=== PATIENT | female | born 1985 | race Caucasian/White ===

== ENCOUNTER 2017-03-03 08:16 | Day surgery (SDC) | payer BC ==
--- NOTE | 2017-03-03 08:57 | EDPHY ---
H & P Stated Complaint: vaginal bleeding with 7/8 week HPI/ROS: CHIEF COMPLAINT: Vaginal bleeding while HISTORY OF PRESENT ILLNESS: The patient is an 8-week , 31 y/o female arriving with her complaining of vaginal bleeding onset last night. She reports that while sitting on the toilet around 19:30 last night she noticed quite a bit of blood. This did not improve through the night and she started to have associated surges of abdominal cramps. She took 2 Tylenol for pain. 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 She went to the hospital in [place], but they did not have an US so they recommended coming to the ED here. This morning, the bleeding has nearly subsided, but she continues to have mild cramping. Her LNMP was January 09 and she has not yet had an obstetrics ultrasound. She denies fever, dysuria, or other complaints. She is not lightheaded. REVIEW OF SYSTEMS: A ten point review of systems was performed and is negative with the exception of the items mentioned in the HPI. - Personal History LMP (Females 10-55): Current Tetanus/Diphtheria Vaccine: Yes - Medical/Surgical History PMH: PMH includes: 1. Right knee surgery 2. Facial surgeries Hx Asthma: No Hx Chronic Respiratory Disease: No Hx Diabetes: No Hx Cardiac Disease: No Hx Renal Disease: No Hx Cirrhosis: No Hx Alcoholism: No Hx HIV/AIDS: No Hx Splenectomy or Spleen Trauma: No Other PMH: r knee surgery - Social History Smoking Status: Never smoked Alcohol Use: None Additional Social History: at bedside. From [place], [place], visiting [place] and staying in [place]. Works in [employer]. - Physical Exam Exam: General Appearance: Alert. Vital signs reviewed. Eyes: Pupils equal and round, no conjunctival injection, no discharge. Anicteric. ENT, Mouth: Mucous membranes are moist, no oropharyngeal erythema or edema. Neck: No lymphadenopathy, supple. Respiratory: Lungs are clear to auscultation; no wheezes, rales, or rhonchi. Cardiovascular: Regular rate and rhythm; no murmur, rub, or gallop. Gastrointestinal: Abdomen is soft and nontender, no masses or organomegaly, bowel sounds normal. Skin: Warm and dry, no rashes on exposed skin, normal color. Back: Nontender to palpation over the thoracolumbar spine. No CVAT. Extremities: No lower extremity edema, no calf tenderness or swelling. Neurological: Alert and oriented. Moving all four extremities easily and equally. Psychiatric: Normal affect. Constitutional: Initial Vital Signs Temperature (C) 36.5 C 03/03/17 08:22 Heart Rate 75 03/03/17 08:22 Respiratory Rate 18 03/03/17 08:22 Blood Pressure 110/67 03/03/17 08:22 O2 Sat (%) 99 03/03/17 08:22 O2 Delivery Mode Simple Mask O2 (L/minute) 8 Allergies/Adverse Reactions: No Known Allergies Allergy (Unverified 03/03/17 08:21) Home Medications: Medication Instructions Recorded Fish Oil 03/03/17 Hydrocodone/APAP 5/325 [[place] 1 - 2 tab PO Q4H PRN #10 tab 03/03/17 5/325 (*)] Hydrocodone/APAP 5/325 [[place] 1 - 2 tab PO Q4HRS PRN #0 tab 03/03/17 5/325 (*)] Ibuprofen 600 mg PO Q6 #60 tablet 03/03/17 03/03/17 Medical Decision Making - Diagnostics Imaging: Discussed imaging studies w/ teacher physically impaired Radiologist ED Course/Re-evaluation: IV established. Labs drawn including CBC, CHEM, BHCG. Obstetrics ultrasound ordered. US shows nonviable 7 week 5 day and subchorionic hemorrhage. I discussed these results with the patient and her and answered all their questions. She would like to speak with OBGYN to discuss options for a D&C. Consulted with BELGICA Jordan. She discussed options with the patient and she has opted for a D&C. She will remain NPO and be admitted. Differential Diagnosis: I considered threatened SAB, completed SAB, ectopic , UTI. - Data Points Laboratory Results: Laboratory Results 03/03/17 08:40 Departure - Departure Disposition: To OP Cath/Surgery Clinical Impression: Threatened miscarriage in early Condition: Good Report Scribed for: Crystal Mckenna Report Scribed by: Marilu Curran Date of Report: 03/03/17 Time of Report: 09:10 Physician Review and Approval Statement: 03/03/17 08:57 Portions of this note were transcribed by the medical records supervisor. I, Dr. Crystal Mckenna, personally performed the history, physical exam, and medical decision- making; and confirmed the accuracy of the information in the transcribed note.
[2017-03-03 09:14] LABS: % IMMATURE GRANULYOCYTES 0.3 % (0.0-1.1); ABSOLUTE IMMATURE GRANULOCYTES 0.02 10^3/uL (0.00-0.10); ADD DIFF? NO; ADD MORPH? NO; ADD SCAN? NO; ATYPICAL LYMPHOCYTE FLAG 20 (0-99); FRAGMENT RBC FLAG 0 (0-99); HEMATOCRIT 38.8 % (38.0-47.0); LEFT SHIFT FLG 0 (0-99); LIPEMIA HEMOLYSIS FLAG 80 (0-99); MEAN CELL HEMOGLOBIN 29.5 pg (27.9-34.1); MEAN CELL HEMOGLOBIN CONCENTR. 33.5 g/dL (32.4-36.7); MEAN PLATELET VOLUME 10.4 fL (8.7-11.7); PLATELET CLUMPS FLAG 0 (0-99); PLATELET COUNT 261 10^3/uL (150-400); RED BLOOD CELL COUNT 4.41 10^6/uL (4.18-5.33); RED CELL DISTRIBUTION WIDTH 12.5 % (11.5-15.2)
--- NOTE | 2017-03-03 12:29 | PDCONSULT ---
Corporate Human Resources Manager Note: Store Worker ED consultation Provider requesting consult: Crystal Mckenna CC: Miscarriage HPI: Patient is a healthy 31 yo G1 here for vaginal bleeding and cramping that started last night. In town visiting family, lives in [place]. Hasn't yet established with an Store Worker. Here with , they were trying for , had Mirena removed. Last night after dinner had a large gush of blood with cramping. Today with ongoing slow trickle of bleeding and feels sore and achy. ROS: neg expect per HPI PMH: None PSH: Orthopedic surgery R knee Meds: PNV, fish oil All: NKDA Social: No T/E/D FH: non contributory Store Worker: G1. No abnl pap. No h/o STI. Normal periods Temp Pulse Resp BP Pulse Ox 36.5 C 75 18 110/67 99 03/03/17 08:22 03/03/17 08:22 03/03/17 08:22 03/03/17 08:22 03/03/17 08:22 Gen: NAD, alert, awake Resp: unlabored CV: RRR Abd: soft, nontender, no masses Ext: warm/dry, no edema Press Helper: Deferred Pelvic US: images reviewed 7w5d IUP, no heart tones. + subchorionic hemorrhage WBC 7.36 10^3/uL (3.80-9.50) 03/03/17 08:40 RBC 4.41 10^6/uL (4.18-5.33) 03/03/17 08:40 Hgb 13.0 g/dL (12.6-16.3) 03/03/17 08:40 Hct 38.8 % (38.0-47.0) 03/03/17 08:40 MCV 88.0 fL (81.5-99.8) 03/03/17 08:40 MCH 29.5 pg (27.9-34.1) 03/03/17 08:40 MCHC 33.5 g/dL (32.4-36.7) 03/03/17 08:40 RDW 12.5 % (11.5-15.2) 03/03/17 08:40 Plt Count 261 10^3/uL (150-400) 03/03/17 08:40 MPV 10.4 fL (8.7-11.7) 03/03/17 08:40 Neut % (Auto) 56.8 % (39.3-74.2) 03/03/17 08:40 Lymph % (Auto) 31.0 % (15.0-45.0) 03/03/17 08:40 [place]erry % (Auto) 10.3 % (4.5-13.0) 03/03/17 08:40 Eos % (Auto) 1.2 % (0.6-7.6) 03/03/17 08:40 Baso % (Auto) 0.4 % (0.3-1.7) 03/03/17 08:40 Nucleat RBC Rel Count 0.0 % (0.0-0.2) 03/03/17 08:40 Absolute Neuts (auto) 4.18 10^3/uL (1.70-6.50) 03/03/17 08:40 Absolute Lymphs (auto) 2.28 10^3/uL (1.00-3.00) 03/03/17 08:40 Absolute Monos (auto) 0.76 10^3/uL (0.30-0.80) 03/03/17 08:40 Absolute Eos (auto) 0.09 10^3/uL (0.03-0.40) 03/03/17 08:40 Absolute Basos (auto) 0.03 10^3/uL (0.02-0.10) 03/03/17 08:40 Absolute Nucleated RBC 0.00 10^3/uL (0-0.01) 03/03/17 08:40 Immature Gran % 0.3 % (0.0-1.1) 03/03/17 08:40 Immature Gran # 0.02 10^3/uL (0.00-0.10) 03/03/17 08:40 Beta HCG, Quant 07809.00 mIU/mL (0-4.83) H 03/03/17 08:40 Patient ABO/Rh A POSITIVE 03/03/17 08:40 A/P: Healthy 31 yo, Rh pos, with intrauterine embryonic demise. Currently hemodynamically stable. Reviewed tx options in detail including expectant management, medical management with misoprostol, D&C. After discussion of risks/benefits she would like to proceed with D&C. She does not have privacy at home and is worried about the amount of blood with expectant and medical management and the risk of needing to return for an emergency procedure since she is staying in [place]. We reviewed the risks of surgery in detail including pain, infection, bleeding, injury to uterus or other organs, need for repeat procedures. Also reviewed expected recovery. Consents signed. Last ate a muffin at 0830, will plan for procedure after 1630 unless she begin to have heavy bleeding, e/o infection Will give Rx for pain control at home after procedure IV Ancef 2g prior to procedure T&S on file NPO
[2017-03-03] MEDS ORDERED: ceFAZolin 2 GM/DEXTROSE 100 ML IV ONE (13:10)
[2017-03-03] MEDS ORDERED: CEFAZOLIN 2 GM/DEXTROSE/100 ML BAG IV ONE (13:18)
[2017-03-03] MEDS ORDERED: LIDO/EPI 1% **Not for Epidural 20 ML MDV ONE (14:36)
[2017-03-03] MEDS ORDERED: SILVER NITRATE APPLICATOR 1 APPL TP ONE (14:37)
[2017-03-03] MEDS ORDERED: OXYCODONE/APAP 5/325 TAB PO PRN (16:15)
[2017-03-03] MEDS ORDERED: MIDAZOLAM 2 MG/2 ML VIAL IVP ONE (16:15)
[2017-03-03] MEDS ORDERED: fentaNYL 100 MCG/2 ML INJ IVP PRN (16:15)
[2017-03-03] MEDS ORDERED: HYDROCODONE/APAP 5/325 TAB PO PRN ×2 (16:15→16:55)
[2017-03-03] MEDS ORDERED: NALOXONE HCL 0.4 MG/ML INJ IVP PRN (16:15)
[2017-03-03] MEDS ORDERED: PROMETHAZINE HCL 25 MG/ML INJ IVP PRN (16:15)
[2017-03-03] MEDS ORDERED: ACETAMINOPHEN 500 MG TAB PO PRN (16:15)
[2017-03-03] MEDS ORDERED: METOCLOPRAMIDE 10 MG/2 ML VIAL IVP PRN (16:15)
[2017-03-03] MEDS ORDERED: ONDANSETRON 4 MG/2 ML VIAL IVP PRN (16:15)
--- NOTE | 2017-03-03 16:15 | PDANEPAE ---
ANE History of Present Illness presents for D and C ANE Past Medical History - Cardiovascular History Hx Hypertension: No Hx Arrhythmias: No Hx Chest Pain: No Hx Coronary Artery / Peripheral Vascular Disease: No Hx CHF / Valvular Disease: No Hx Palpitations: No - Pulmonary History Hx COPD: No Hx Asthma/Reactive Airway Disease: No Hx Recent Upper Respiratory Infection: No Hx Oxygen in Use at Home: No Hx Sleep Apnea: No - Endocrine History Hx Diabetes: No Hypothyroid: No Hyperthyroid: No Obesity: no - Renal History Hx Renal Disorders: No - Liver History Hx Hepatic Disorders: No - Neurological & Psychiatric Hx Hx Neurological and Psychiatric Disorders: No - Cancer History Hx Cancer: No - Congenital Disorder History Hx Congenital Disorders: No - GI History GERD: no Hx Gastrointestinal Disorders: No ANE Review of Systems Review of systems is: negative - Exercise capacity Exercise capacity: >=4 METS ANE Patient History - Allergies Allergies/Adverse Reactions: No Known Allergies Allergy (Unverified 03/03/17 08:21) - Home Medications Home medications: home medication list seen and reviewed Home Medications: Fish Oil 03/03/17 [Last Taken Unknown] 03/03/17 [Last Taken Unknown] - NPO status NPO Since - Liquids (Date): 03/03/17 NPO Since - Liquids (Time): 11:00 NPO Since - Solids (Date): 03/03/17 NPO Since - Solids (Time): 08:00 - Anes Hx Anes Hx: no prior problems - Smoking Hx Smoking Status: Never smoked ANE Labs/Vital Signs - Labs Result Diagrams: 03/03/17 08:40 - Vital Signs Blood Pressure: 110/67 Heart Rate: 75 Respiratory Rate: 18 O2 Sat (%): 99 Height: 165.1 cm Weight: 58.967 kg ANE Physical Exam - Airway Neck exam: FROM Mallampati Score: Class 1 Mouth exam: normal dental/mouth exam - Pulmonary Pulmonary: no respiratory distress - Cardiovascular Cardiovascular: regular rate and rhythym - ASA Status ASA Status: I ANE Anesthesia Plan Anesthesia Plan: GA w LMA
[2017-03-03] MEDS ORDERED: fentaNYL 100 MCG/2 ML INJ ONE (16:18)
[2017-03-03] MEDS ORDERED: PROPOFOL/EMULSION 500 MG/50 ML BOTTLE IV ONE (16:20)
[2017-03-03] MEDS ORDERED: MIDAZOLAM 2 MG/2 ML VIAL ONE (16:21)
--- NOTE | 2017-03-03 17:05 | POSTANESTH ---
Post Anesthetic Evaluation Cardiovascular Status: Normal, Stable Respiratory Status: Normal, Stable Level of Consciousness/Mental Status: Moderately Sleepy Pain Control: Adequate, Prn Tx Ordered Nausea/Vomiting Control: Adequate, Prn Tx Ordered Complications Possibly Related to Anesthesia: None Noted
[2017-03-03 17:10] VITALS: PULSE 57; TEMP 98.1; O2SAT 98
[2017-03-03 18:06] VITALS: BP 115/66; RESP 20
--- NOTE | 2017-03-04 05:16 | GOP ---
[f rep st] OPERATIVE REPORT DATE OF OPERATION: 03/03/2017 SURGEON: Madeline Hernandez MD ANESTHESIA: IV general. ANESTHESIOLOGIST: Jose Nelson MD PREOPERATIVE DIAGNOSIS: Embryonic demise at 7 weeks 5 days gestation. POSTOPERATIVE DIAGNOSIS: Embryonic demise at 7 weeks 5 days gestation. PROCEDURE PERFORMED: Suction, dilation and curettage. FINDINGS: Uterus consistent with 8 weeks gestation. Products of conception consistent with gestational age. SPECIMENS: Products of conception. ESTIMATED BLOOD LOSS: Less than 10 mL. INDICATIONS: Patient is a 31-year-old, 1, para 0, at approximately 8 weeks gestation by last menstrual period, who presents to the emergency room with bleeding and cramping in the 1st trimester of . She has not yet initiated obstetrical care. An ultrasound was done confirming an intrauterine with an embryo with a crown rump length measuring 7 weeks 5 days with no heart beat and a large subchorionic hemorrhage consistent with an embryonic demise and impending miscarriage. The patient was counseled on her options including expectant management, medical management with misoprostol and suction dilation and curettage. She decided to proceed with suction, dilation and curettage. We reviewed all the risks and benefits, and consent forms were signed. She is Rh positive. DESCRIPTION OF PROCEDURE: The patient was brought to the operating room and a time-out was performed. IV general anesthesia was initiated. She was prepped and draped in the normal sterile fashion in dorsal lithotomy in [facility]. IV Kefzol 2 g IV was given. The Klopfer speculum was placed. The cervix was grasped at the anterior lip with a single-tooth tenaculum. The cervix was easily dilated to 8.5 mm using Hegar dilators. The 8 mm rigid curved curette was introduced and suction was initiated. The contents of the uterus were emptied and then 1 final pass was done confirming a gritty texture 360 degrees. All instruments were removed. Hemostasis was noted at this time. Products of conception were evaluated and consistent with gestational age, including a complete gestational sac. Of note, I did review the option of sending the tissue for genetic testing with the patient and her and they declined, as this is her 1st miscarriage. She was awakened in good condition and brought to the recovery room. She will be discharged home after the procedure and will follow up with her primary SEO COORDINATOR in [place] where she will return in 1 week. COMPLICATIONS: None. /[id number]/MODL MTDD
== END 2017-03-03 18:25 | disposition home or self-care (01) ==
LOC: UNDOADMOB 13:11 → FSGY 15:52
PROVIDERS: ATTEND Obstetrics & Gynecology
PROC: 10D17ZZ Extraction of Products of Conception, Retained, Via Natural or Artificial Opening (ICD-10-PCS; principal; 2017-03-03 16:30)
DX: O03.4 Incomplete spontaneous abortion without complication (principal)
CPT/HCPCS: J0690; J2250; J2704; J3010